=== PATIENT | male | born 1995 | race Caucasian/White ===

== ENCOUNTER → 2017-01-12 | Outpatient (CLI) | payer MEDICARE ==
--- NOTE | 2017-01-12 11:05 | PN ---
DATE OF SERVICE: 01/12/2017 A 21-year-old gentleman who has been followed in the Sleep Center for treatment of obstructive sleep apnea-hypopnea syndrome. He is using nasal mask every night. Sometimes according to him, he may have feel dryness in the mouth, possibly he opened his mouth. [place] Sleepiness Scale is 6. I checked his CPAP unit. CPAP pressure is 6 cm of water. Usage for one month is 100% of the time more than 4 hours, average 7.2 hours. Leak is up to 20 L/min, which is acceptable. Apnea-hypopnea index reading from the machine is only 0.9, which is perfect. MEDICATIONS: Patient taking melatonin on p.r.n. basis. During physical exam, patient in no distress. BP 132/62, HR 80, RR 16. Height 5, 11. Weight 280. BMI 39, temperature 97.6. Oxygen saturation at room air 97%. Oropharynx extremely low position of soft palate. ABDOMEN: Obese. NECK: Supple. No JVD, Thyroid is not palpable. LUNGS: Clear to percussion and to auscultation. Good air exchange. No wheezing or rhonchi. HEART: S1, S2 regular. No murmurs, gallops, or rubs. DAMASCENER: Awake, alert, and oriented x3. Cranial nerves 2 to 7 intact. There is no fasciculation or atrophy noted. No focal deficits observed. IMPRESSION: 1. Obstructive sleep apnea-hypopnea syndrome on control with CPAP at 6 cm of water; 100% compliance with treatment. 2. Obesity. 3. Depression. 4. History of Asperger syndrome. 5. Tendency for sleep delay at the present time. PLAN: 1. Continue treatment with CPAP every night for the whole night. 2. Prescription for chin strap. 3. As much as possible sunlight exposure in the morning. 4. No driving if feeling any sleepiness. 5. Losing weight. Thank you very much for allowing me to participate in the management of your patient. Sincerely, Jaziel Hill MD, PhD, FAASM Diplomat of [place] [employer], Sleep Medicine Board by [place] [employer] [place] [employer] Tender of [facility] [place]
== END | disposition home or self-care (01) ==
LOC: SLEEP 10:20
PROVIDERS: ATTEND Internal Medicine
DX: G47.33 Obstructive sleep apnea (adult) (pediatric) (principal); E66.9 Obesity, unspecified; Z68.39 Body mass index [BMI] 39.0-39.9, adult; F32.9 Major depressive disorder, single episode, unspecified; F84.5 Asperger's syndrome

== ENCOUNTER 2017-04-19 10:48 | Emergency (ER) | payer MEDICARE ==
[2017-04-19 11:37] VITALS: BP 132/82; PULSE 90; RESP 20; TEMP 99
[2017-04-19] MEDS ORDERED: CIPROFLOXACIN 0.3% OPHTH SOLN 2.5 ML BTL BOTH EYES STA (12:04)
--- NOTE | 2017-04-19 12:15 | ED ---
ENT HPI - General Chief complaint: ENT Stated complaint: RT EAR PAIN Time Seen by Provider: 04/19/17 11:57 Source: patient, RN notes reviewed, old records reviewed Mode of arrival: ambulatory Limitations: no limitations - History of Present Illness Initial comments: This is a 21-year-old male presents emergency Department chief complaint of right ear pain for the past 3 days. Patient reports that he saw [facility] and was started on Augmentin. Patient reports that he's taken to the antibiotics, 1 day. Patient reports that he is having severe drainage and pain over the ear. Patient states he has no fever or chills. He reports that he does take baths frequently. Patient states that he has no history of swimming. Patient denies any fever or chills, chest pain, shortness breath, sore throat, nasal drainage, headache, abdominal pain, nausea or vomiting. Patient reports he still is able to hear out of the ear. Patient reports that he does have an appointment tomorrow with Dr. Chase. Patient states that he is here for further evaluation. Patient reports that he is not on any antibiotic drops. - Related Data Previous Rx's Medication Instructions Recorded Ciprofloxacin Ophth Soln [Cipro 1 drops RIGHT EAR Q4HR #1 bottle 04/19/17 Ophth Soln] Allergies Allergy/AdvReac Type Severity Reaction Status Date / Time bee pollen Allergy Rash/Hives Verified 04/19/17 11:37 Review of Systems ROS Statement: Those systems with pertinent positive or pertinent negative responses have been documented in the HPI. ROS Other: All systems not noted in ROS Statement are negative. Past Medical History Past Medical History: No Reported History History of Any Multi-Drug Resistant Organisms: None Reported Past Surgical History: No Surgical Hx Reported Past Psychological History: No Psychological Hx Reported Smoking Status: Never smoker Past Alcohol Use History: None Reported Past Drug Use History: None Reported General Exam Limitations: no limitations General appearance: alert, in no apparent distress Head exam: Present: atraumatic, normocephalic, normal inspection Eye exam: Present: normal appearance, PERRL, EOMI. Absent: scleral icterus, conjunctival injection, periorbital swelling ENT exam: Present: normal exam, normal oropharynx, mucous membranes moist. Absent: TM's normal bilaterally (Patient has a erythematous and draining right ear. Patient has tender over the preauricular area. Patient has no mastoid tenderness. Ear canals patent this time however there is a significant amount of drainage. At this time is patent enough to not hold an ear wick.) Neck exam: Present: normal inspection. Absent: tenderness, meningismus, lymphadenopathy Respiratory exam: Present: normal lung sounds bilaterally. Absent: respiratory distress, wheezes, rales, rhonchi, stridor Cardiovascular Exam: Present: regular rate, normal rhythm, normal heart sounds. Absent: systolic murmur, diastolic murmur, rubs, gallop, clicks GI/Abdominal exam: Present: soft, normal bowel sounds. Absent: distended, tenderness, guarding, rebound, rigid Extremities exam: Present: normal inspection, full ROM, normal capillary refill. Absent: tenderness, pedal edema, joint swelling, calf tenderness Back exam: Present: normal inspection Neurological exam: Present: alert, oriented X3, CN II-XII intact Psychiatric exam: Present: normal affect, normal mood Skin exam: Present: warm, dry, intact, normal color. Absent: rash Course Vital Signs 04/19/17 11:34 Temperature 99.0 F Pulse Rate 90 Respiratory 20 Rate Blood Pressure 132/82 O2 Sat by Pulse 96 Oximetry Medical Decision Making - Medical Decision Making This is a 21-year-old male presents emergency Department chief complaint of right ear pain for the past 3 days. Patient reports that he saw [facility] and was started on Augmentin. Patient reports that he's taken two the antibiotics, 1 day. Patient reports that he is having severe drainage and pain over the ear. Patient states he has no fever or chills. He reports that he does take baths frequently. Patient states that he has no history of swimming. Patient denies any fever or chills, chest pain, shortness breath, sore throat, nasal drainage, headache, abdominal pain, nausea or vomiting. Patient reports he still is able to hear out of the ear. Patient has a erythematous right ear canal with drainage. It is patent and no significant closure at this time. Patient will be started on ciprofloxacin drops. Discussed instructed put 10 drops in the ear twice a day. Patient understands treatment plan will comply. He does have a follow-up appointment tomorrow with Dr. Chase. Disposition Clinical Impression: Otitis externa, Otitis media Disposition: HOME SELF-CARE Condition: Good Additional Instructions: Patient advised to put 10 drops to the right ear twice a day. Follow-up with your ENT specialist tomorrow. Continue the Augmentin. Return to the emergency department if any alarming signs or symptoms occur. Prescriptions: Ciprofloxacin Ophth Soln [Cipro Ophth Soln] 1 drops RIGHT EAR Q4HR #1 bottle Referrals: Aristeo Sofia MD [Primary Care Provider] - 1-2 days Rinku Maloney DO [Doctor of Osteopathic Medicine] - 1-2 days Time of Disposition: 12:12
== END 2017-04-19 12:29 | disposition home or self-care (01) ==
LOC: EC 10:48
DX: H66.91 Otitis media, unspecified, right ear (principal); H60.91 Unspecified otitis externa, right ear; Z91.030 Bee allergy status
CPT/HCPCS: 99283

== ENCOUNTER → 2022-04-27 | Outpatient (CLI) | payer BC, MEDICARE ==
--- NOTE | 2022-04-27 18:23 | CONS ---
CONSULTATION DATE OF SERVICE: 04/27/2022 This 26-year-old gentleman has been re-evaluated in Sleep Center for obstructive sleep apnea-hypopnea syndrome. HISTORY OF PRESENT ILLNESS/SLEEP-WAKE EVALUATION: The last time I saw this patient was in December of 2016 for treatment of obstructive sleep apnea-hypopnea syndrome. The patient has had a history of obstructive sleep apnea since 2014. At that time it was mild obstructive sleep apnea. The patient was treated with CPAP with a low range of pressure of 6 cm of water. With this regimen his respiration was under control. Apnea-hypopnea index at that time from the machine was 0.9. Patient's sleep schedule is from midnight until 9 a.m. basically 7 days a week. He does have problems with falling asleep, although no TV in bedroom. He usually sleeps on the back position. He used his machine every night until about one week ago, when his machine stopped working. No history of hypnagogic hallucinations, sleep paralysis or cataplexy. [place] Sleepiness Scale is 8 today. PAST MEDICAL HISTORY: Positive for autistic disorder, Asperger syndrome, depression. MEDICATIONS: Citalopram, bupropion. PAST SURGICAL HISTORY: None. SOCIAL HISTORY: Negative for smoking or using alcohol. FAMILY HISTORY: Positive for snoring, mental illness, restless legs symptoms. REVIEW OF SYSTEMS: Awakenings from sleep, snoring. No fevers. No double vision. No recent chest pain. No shortness of breath. No abdominal pain. No bleeding episodes. No blood in the urine. No seizure episodes. PHYSICAL EXAMINATION: GENERAL APPEARANCE: Pleasant gentleman without distress. VITAL SIGNS: BP 127/84, HR 80, RR 16, weight 329.2 pounds, body mass index 44.9. The patient's weight increased by about 50 pounds since his previous visit. Temperature 97.0, oxygen saturation at room air 97%. HEENT: PERRLA, EOMI, evaluation of oropharynx showed tongue protrudes midline. Low position of soft palate. NECK: Supple, no JVD. Thyroid is not palpable. Wide neck; 20-1/4 inches in circumference. LUNGS: Clear to percussion and to auscultation. Good air exchange. No wheezing or rhonchi. HEART: S1, S2 regular. No murmurs, gallops, or rubs. ABDOMEN: Obese. EXTREMITIES: No clubbing or cyanosis. ALUMINA PLANT SUPERVISOR: Awake, alert, and oriented X3. Cranial nerves 2 to 7 intact. There is no fasciculation or atrophy. noted. No focal deficits observed. IMPRESSION: 1. Obstructive sleep apnea-hypopnea syndrome documented in our sleep center since 2014. The patient continued to use his CPAP equipment, but it was broken about one week ago. Low position of soft palate, wide neck, 20-1/4 inches in circumference; obstructive sleep apnea-hypopnea syndrome. 2. Obesity; body mass index 44.9. The patient's weight increased since his previous sleep study by about 50 pounds. 3. History of autism, Asperger syndrome. 4. History of depression. 5. Sleep delay. PLAN: 1. Prescription for new CPAP unit. The patient will get a machine with an Auto PAP regimen with range of the pressure 6 to 14. The patient's weight increased by 50 pounds. 2. Follow-up visit to check compliance with treatment, clinical response to treatment, and to make any necessary adjustments related to mask fitting, pressure and humidification. 3. Watching and losing weight. 4. No driving if feeling sleepiness. Thank you very much for referring this patient for consultation. Sincerely, Jaziel Hill MD, PhD, FAASM Diplomat of [place] [employer] Sleep Medicine Board of [place] [employer]Net Architect of [facility] [place] LEN / VENESSA: [id number] /
== END | disposition home or self-care (01) ==
LOC: SLEEP 14:30
PROVIDERS: ATTEND Internal Medicine
DX: G47.33 Obstructive sleep apnea (adult) (pediatric) (principal); E66.9 Obesity, unspecified; Z68.41 Body mass index [BMI] 40.0-44.9, adult; Z86.69 Personal history of other diseases of the nervous system and sense organs; Z86.59 Personal history of other mental and behavioral disorders
CPT/HCPCS: 99202

== ENCOUNTER → 2022-11-17 | Outpatient (CLI) | payer MEDICARE ==
--- NOTE | 2022-11-17 16:30 | P.PN ---
Subjective DATE: 11/17/2022 FOLLOW UP VISIT. Patient with obstructive sleep apnea hypopnea syndrome return to sleep center for follow-up visit. Patient was initiated on PAP therapy and today is first visit after treatment was started. Patient was able to use PAP equipment every night for the whole night. The patient does not have significant problems with the mask, PAP pressure and humidification. [place] sleepiness scale is 1, which is perfect. I checked information from PAP unit. PAP unit pressure 5-14, average 7.0 cm H2O. Usage is 93 % for more then 4 hours, average 7.5 hours per night. Leak is high 69.6 l/m, mask is broken. Apnea Hypopnea Index is 0.5, which is normal. MEDICATIONS:1. Citalopram 2. Bupropion During physical exam: GENERAL: A pleasant patient without any distress. VITAL SIGNS: BP 138/84, HR 90, RR 16, weight 304, temperature 98.1, oxygen saturation at room air 97%. HEENT: PERRLA, EOMI.low position of soft palate,. NECK: Supple. No JVD. LUNGS: Clear to percussion and to auscultation. Good air exchange. No wheezing or rhonchi. HEART: S1, S2 regular. ABDOMEN: Soft and nontender. Obese EXTREMITIES: No clubbing or cyanosis. DIRECTOR OF SPORTS MEDICINE: Awake, alert, and oriented x3. No focal deficit. Impressions: 1. Obstructive sleep apnea-hypopnea syndrome. Patient demonstrated great compliance with treatment, benefiting from treatment. 2. Obesity. 3. History of autism, Asperger syndrome. 4. History of depression. 5. Sleep delay. Plan: 1. Continue using PAP equipment every night for the whole night. 2. To change air filter at least 1-2 times per month. 3. PAP unit should stay lower then position of the head. 4. Advised patient to remove all remaining water from humidifier canister daily and make it dry after each usage. Refill canister with fresh distilled water before each usage. 5. Sleep hygiene with regular time in bed for at least 8 hours. 6. Precautions related to driving. No driving if feel any sleepiness. 7. I will maintain prescription for PAP supplies including mask, tube, filters. Prescription to replace mask immediately. 8. Follow up visit in 6 months or earlier if patient has any problems. 9. Watching and losing weight. Thank you very much for allowing me to participate in the management of your patient. Jaziel Hill MD, PhD, FAASM. Diplomat of [place] [employer], Sleep Medicine Board by [place] [employer] Television Repairer of [facility] [place]
== END ==
LOC: SLEEP 15:59
PROVIDERS: ATTEND Internal Medicine
DX: G47.33 Obstructive sleep apnea (adult) (pediatric) (principal); F84.5 Asperger's syndrome; E66.9 Obesity, unspecified; Z86.59 Personal history of other mental and behavioral disorders; Z91.030 Bee allergy status
CPT/HCPCS: 99212

== ENCOUNTER → 2023-07-19 | Outpatient (CLI) | payer MEDICARE ==
--- NOTE | 2023-07-19 15:22 | P.PN ---
Subjective DATE: 07/19/2023 FOLLOW UP VISIT. Patient with obstructive sleep apnea hypopnea syndrome return to sleep center for follow-up visit. Information from previous visit have been reviewed. Patient is using PAP equipment every night for the whole night, getting PAP supplies in time. The patient does not have significant problems with the mask, PAP unit and humidification. [place] sleepiness scale is 2, which is normal. I checked information from PAP unit. PAP unit pressure 5-14, average 5.1 cm H2O. Usage is 100% and 60 % for more then 4 hours, average 4.3 hours per night. Leak is significantly increased to 120.0 l/m. Tube connection is loose. Apnea Hypopnea Index is 4.1, which is normal. Air filter is in bad condition. Mask needs to be replaced MEDICATIONS:1. Celexa 2. Strattera During physical exam: GENERAL: A pleasant patient without any distress. VITAL SIGNS: BP 130/83, HR 82, RR 16 , weight 308, temperature 97.2, oxygen saturation at room air 76 % . HEENT: PERRLA, EOMI.low position of soft palate. NECK: Supple. No JVD. LUNGS: Clear to percussion and to auscultation. Good air exchange. No wheezing or rhonchi. HEART: S1, S2 regular. ABDOMEN: Soft and nontender. Slightly obese EXTREMITIES: No clubbing or cyanosis. HEAD SUGAR REPROCESS OPERATOR: Awake, alert, and oriented x3. No focal deficit. Impressions: 1. Obstructive sleep apnea-hypopnea syndrome. Patient demonstrated good compliance with treatment, benefiting from treatment. 2. Obesity BMI 42.8. 3. History of Asperger's syndrome and autism. 4. History of depression. 5. History of sleep delay. Plan: 1. Continue using PAP equipment every night for the whole night. 2. To change air filter at least 1-2 times per month. Air filter needs to be replaced immediately 3. PAP unit should stay lower then position of the head. 4. Advised patient to remove all remaining water from humidifier canister daily and make it dry after each usage. Refill canister with fresh distilled water before each usage. 5. Sleep hygiene with regular time in bed for at least 8 hours. 6. Precautions related to driving. No driving if feel any sleepiness. 7. I will maintain prescription for PAP supplies including mask, tube, filters. 8. Watching weight. 9. Follow up visit in 6 months or earlier if patient has any problems. Thank you very much for allowing me to participate in the management of your patient. Jaziel Hill MD, PhD, FAASM. Diplomat of [place] [employer], Sleep Medicine Board by [place] [employer] Adhesive Sprayer of [facility] [place]
== END ==
LOC: 3 N SLEEP 13:35
PROVIDERS: ATTEND Internal Medicine
DX: G47.33 Obstructive sleep apnea (adult) (pediatric) (principal); F41.9 Anxiety disorder, unspecified; F84.5 Asperger's syndrome; E66.9 Obesity, unspecified; F32.A Depression, unspecified; Z68.41 Body mass index [BMI] 40.0-44.9, adult; Z99.89 Dependence on other enabling machines and devices; Z91.030 Bee allergy status
CPT/HCPCS: 99212

== ENCOUNTER → 2024-05-09 | Outpatient (CLI) | payer MEDICARE ==
--- NOTE | 2024-05-11 18:46 | CT ---
EXAMINATION TYPE: CT ankle RT wo con DATE OF EXAM: 05/09/2024 COMPARISON: None HISTORY: right ankle pain, no injury CT DLP: 271.3 mGycm Automated exposure control for dose reduction was used. Contrast: None Technique: Axial images 3 mm thick sections. Reconstructed images in the coronal and sagittal planes. 3-D reconstructed images performed on a separate computer by the technologist for review. FINDINGS: No acute fractures are evident. There is some intraosseous calcification between the tibia and fibula distally at the level of the metaphysis. Joint spaces appear preserved. Soft tissues are unremarkabl e. The ankle joint space appears preserved. No osteochondritis dissecans is evident. IMPRESSION: 1. NO ACUTE OR SUSPICIOUS CHRONIC CHANGES OF THE ANKLE EVIDENT.
== END | disposition home or self-care (01) ==
LOC: RADCTMAIN 12:07
PROVIDERS: ATTEND Family Medicine
DX: M65.271 Calcific tendinitis, right ankle and foot (principal)